=== PATIENT | female | born 1950 | race Caucasian/White ===

== ENCOUNTER → 2016-05-03 12:26 | Outpatient (CLI) | payer OTHER ==
[2014-07-10 10:46] VITALS: BMI 29.8
[~2016-05-03 12:26] MED LIST: AMBIEN10 MG PO; CIPRO500 MG PO; FAMVIR250 MG PO; FLAGYL250 MG PO; GLUCOPHAGE500 MG PO; HYDROCODON-ACE1 EAC7 PO; KLONOPIN0.5 MG PO; LIPITOR10 MG PO; LOMOTIL TABLET1 TAB PO; VITAMIN D5000 UNIT PO; ZOFRAN ODT4 MG/UDTAB PO
== END | disposition home or self-care (01) ==
LOC: D.RAD 12:26
DX: M54.5 Low back pain (principal); G89.29 Other chronic pain

== ENCOUNTER → 2017-06-08 09:38 | Outpatient (CLI) | payer MEDICARE ==
[2014-07-10 10:46] VITALS: BMI 29.8
== END | disposition home or self-care (01) ==
LOC: D.CT 09:38
DX: N13.30 Unspecified hydronephrosis (principal)

== ENCOUNTER → 2018-05-28 09:56 | Outpatient (CLI) | payer MEDICARE ==
[2014-07-10 10:46] VITALS: BMI 29.8
== END | disposition home or self-care (01) ==
LOC: D.US 09:56
PROVIDERS: ATTEND Family Medicine
DX: R10.32 Left lower quadrant pain (principal)